=== PATIENT | male | born 2005 | race Caucasian/White ===

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

== ENCOUNTER 2025-02-02 23:59 | Emergency (ER) | payer BC, OTHER ==
[~2025-02-02] VITALS: Ht 180.3 cm; Wt 90.7 kg
[~2025-02-02 23:59] MED LIST: AMOX-319 PO
[2025-02-03 00:13] VITALS: BP 151/84
[2025-02-03] MEDS ORDERED: IPRATROPIUM BROMIDE 0.5 MG/2.5 ML NEBU ONE (00:47)
[2025-02-03] MEDS ORDERED: ALBUTEROL SULFATE 2.5 MG/3 ML NEBU ONE (00:47)
[2025-02-03] MEDS ORDERED: ACETAMINOPHEN 500 MG TABLET ONE (00:49)
[2025-02-03 00:50] VITALS: O2SAT 98
[2025-02-03] MEDS: ACETAMINOPHEN 500 MG TABLET PO ONE (00:55)
[2025-02-03 01:02] VITALS: O2SAT 99
[2025-02-03] MEDS: IPRATROPIUM BROMIDE 0.5 MG/2.5 ML NEBU NEB ONE (01:30)
[2025-02-03] MEDS: ALBUTEROL SULFATE 2.5 MG/3 ML NEBU NEB ONE (01:31)
[2025-02-03] MEDS ORDERED: ALBU18HF2 INH (01:44)
[2025-02-03] MEDS ORDERED: PRED20TA PO (01:44)
[2025-02-03 01:52] VITALS: BP 139/81; O2SAT 97
== END 2025-02-03 01:52 | disposition home or self-care (01) ==
LOC: ER 02-03 00:20
DX: J20.9 Acute bronchitis, unspecified (principal); R03.0 Elevated blood-pressure reading, without diagnosis of hypertension; R05.9 Cough, unspecified; F17.210 Nicotine dependence, cigarettes, uncomplicated; Z79.52 Long term (current) use of systemic steroids; Z20.822 Contact with and (suspected) exposure to COVID-19
CPT/HCPCS: 99284; 71045; 87426; 87804 ×2; 94640; J7512; A4606; A4663; A9150; J3590